=== PATIENT | male | born 1960 | race Two or more races ===

== ENCOUNTER 2023-05-15 18:57 | Inpatient (IN) | payer OTHER ==
[~2023-05-15] VITALS: Ht 177.8 cm; Wt 63.5 kg
[2023-05-19] MEDS ORDERED: AMOX1TAB5 PO (08:15)
[2023-05-19] MEDS ORDERED: PEPCID AC20 MG PO (08:15)
[2023-05-19] MEDS ORDERED: INTESTINEX680 M1 PO (08:16)
[2023-05-19] MEDS ORDERED: DICY20TA PO (08:16)
== END 2023-05-19 11:49 | disposition home or self-care (01) | DRG 392 ==
LOC: ER 18:57 → SURH 05-16 13:02
PROVIDERS: General Practice; Surgery; ADMIT Surgery; ATTEND Surgery
PROC: BW21YZZ Computerized Tomography (CT Scan) of Abdomen and Pelvis using Other Contrast (ICD-10-PCS; principal; 2023-05-15)
DX: K57.92 Diverticulitis of intestine, part unspecified, without perforation or abscess without bleeding (principal); K62.5 Hemorrhage of anus and rectum; D17.5 Benign lipomatous neoplasm of intra-abdominal organs

== ENCOUNTER 2023-07-01 10:45 | Inpatient (IN) | payer OTHER ==
[~2023-07-01] VITALS: Ht 160 cm; Wt 0.5 kg
[~2023-07-01 10:45] MED LIST: AMOX1TAB5 PO; DICY20TA PO; INTESTINEX680 M1 PO; PEPCID AC20 MG PO
[2023-07-01 12:38] LABS: HEMATOCRIT 45.3 % (39.0-48.0); HEMOGLOBIN 15.6 g/dL (13-16.00); MEAN CELL VOLUME 89.7 fL (80.0-100.00); MEAN CORPUSCULAR HEMOGLOBIN 30.9 pg (27.00-32.0); MEAN CORPUSCULAR HGB CONC 34.4 g/dl (32.0-36.0); PH,URINE 5.5 (5.0-8.0); PLATELET COUNT 243 K/uL (150-450); RED BLOOD COUNT 5.05 M/uL (4.00-6.00); URINE APPEARANCE Clear; URINE BILIRRUBIN Negative (NEGATIVE); URINE BLOOD Negative; URINE COLOR Yellow; URINE GLUCOSE Negative (NEGATIVE); URINE LEUKOCYTE Negative; URINE NITRATE Negative; URINE PROTEIN Negative (NEGATIVE)
[2023-07-01 12:39] LABS: URINE BACTERIA 6.2 uL (0.0-1933); URINE EPITHELIAL CELLS 1.8 uL (0.0-38.8); URINE RBC 3.8 uL (0.0-20.8); URINE WBC 3.8 uL (0.0-23.2)
[2023-07-01 13:19] LABS: INR 0.98; PARTIAL THROMBOPLASTIN TIME 30.4 SECONDS (22.0-34.0); PROTHROMBIN TIME 10.3 SECONDS (9.0-11.5)
[2023-07-01 13:29] LABS: BILIRUBIN TOTAL 0.59 mg/dL (0.3-1.2); CALCIUM 9.4 mg/dL (8.5-10.1); GFR 75.23; GLOBULINA 3.1 G/DL (2.4-3.5); POTASSIUM 4.66 mEq/L (3.5-5.1); TOTAL PROTEIN 7.1 gm/dL (6.4-8.2)
[2023-07-05 11:43] LABS: HEMATOCRIT 44.2 % (39.0-48.0); HEMOGLOBIN 15.6 g/dL (13-16.00); MEAN CELL VOLUME 89.4 fL (80.0-100.00); MEAN CORPUSCULAR HEMOGLOBIN 31.4 pg (27.00-32.0); MEAN CORPUSCULAR HGB CONC 35.2 g/dl (32.0-36.0); PLATELET COUNT 259 K/uL (150-450); RED BLOOD COUNT 4.95 M/uL (4.00-6.00); RED CELL DISTRIBUTION WIDTH 14.1 % (11.5-14.5)
[2023-07-05 12:20] LABS: ALBUMIN 3.7 gm/dL (3.4-5.0); CALCIUM 8.9 mg/dL (8.5-10.1); CREATININE SERUM 1.22 mg/dL (0.70-1.30); GFR 59.8; MAGNESIUM 1.8 mg/dL (1.8-2.4); PHOSPHOROUS 2.9 mg/dL (2.5-4.9); POTASSIUM 3.84 mEq/L (3.5-5.1)
[2023-07-06 09:31] LABS: HEMATOCRIT 42.1 % (39.0-48.0); HEMOGLOBIN 14.6 g/dL (13-16.00); MEAN CELL VOLUME 90.4 fL (80.0-100.00); MEAN CORPUSCULAR HEMOGLOBIN 31.3 pg (27.00-32.0); MEAN CORPUSCULAR HGB CONC 34.6 g/dl (32.0-36.0); PLATELET COUNT 222 K/uL (150-450); RED BLOOD COUNT 4.65 M/uL (4.00-6.00); RED CELL DISTRIBUTION WIDTH 13.9 % (11.5-14.5)
[2023-07-06 09:52] LABS: ALBUMIN 3.4 gm/dL (3.4-5.0); CALCIUM 8.5 mg/dL (8.5-10.1); CREATININE SERUM 1.03 mg/dL (0.70-1.30); GFR 72.7; MAGNESIUM 1.9 mg/dL (1.8-2.4); POTASSIUM 4.17 mEq/L (3.5-5.1)
[2023-07-06 10:17] LABS: PHOSPHOROUS 1.2 mg/dL (2.5-4.9)
[2023-07-08] MEDS ORDERED: TRAM1TAB98 PO (08:59)
[2023-07-08] MEDS ORDERED: PEPCID AC20 MG PO (08:59)
[2023-07-08] MEDS ORDERED: INTESTINEX680 M1 PO (08:59)
== END 2023-07-08 11:22 | disposition home or self-care (01) | DRG 331 ==
LOC: O/R 07-05 06:38 → SURH 07-05 10:45
PROVIDERS: ADMIT Surgery; ATTEND Surgery
PROC: 0DBP4ZZ Excision of Rectum, Percutaneous Endoscopic Approach (ICD-10-PCS; 2023-07-05)
PROC: 0DJD8ZZ Inspection of Lower Intestinal Tract, Via Natural or Artificial Opening Endoscopic (ICD-10-PCS; 2023-07-05)
PROC: 3E0F7SF Introduction of Other Gas into Respiratory Tract, Via Natural or Artificial Opening (ICD-10-PCS; 2023-07-05)
PROC: 0DTN4ZZ Resection of Sigmoid Colon, Percutaneous Endoscopic Approach (ICD-10-PCS; principal; 2023-07-05 14:15)
DX: K57.30 Diverticulosis of large intestine without perforation or abscess without bleeding (principal); D12.5 Benign neoplasm of sigmoid colon; K66.0 Peritoneal adhesions (postprocedural) (postinfection); R93.5 Abnormal findings on diagnostic imaging of other abdominal regions, including retroperitoneum